=== PATIENT | female | born 1955 | race Caucasian/White ===

== ENCOUNTER → 2018-08-18 | Outpatient (CLI) | payer OTHER | LOC: CAT 09:57 | DX: K80.20 Calculus of gallbladder without cholecystitis without obstruction (principal); I25.10 Atherosclerotic heart disease of native coronary artery without angina pectoris; I70.0 Atherosclerosis of aorta ==

== ENCOUNTER → 2021-01-02 | Outpatient (CLI) | payer OTHER, BC ==
[~2021-01-02] MED LIST: ARAVA20 MG PO; ASA81BEC PO; FOLIC ACID1 MG PO; FUROSEMIDE 40 M40 M1 PO; HYDROCODON-ACE1 EAC7 PO; MAG6464 MG PO; METFORMIN HCL500 MG PO; METHOTREXATE 22.5 M1 PO; POTASSIUM PO
[2021-01-02 10:18] LABS: HEMATOCRIT 41.1 % (37.0-47.0); HEMOGLOBIN 13.7 gm/dL (12.0-15.0); MCHC 33.4 g/dL (28.0-37.0); MCV 92.6 fL (80.0-100.0); RBC 4.44 mil/uL (4.20-5.00); RDW 16.4 % (10.5-14.5); WBC 5.1 thou/uL (4.0-11.0)
[2021-01-02 10:33] LABS: APTT 24.5 Seconds (24.5-32.8); INR 0.99; PROTIME 10.8 Seconds (10.5-12.1)
[2021-01-02 10:34] LABS: ALBUMIN 3.1 g/dL (3.4-5.0); CALCIUM 8.9 mg/dL (8.5-10.1); CREATININE 0.7 mg/dL (0.6-1.0); POTASSIUM 3.3 mmol/L (3.5-5.1); TOTAL BILIRUBIN 0.7 mg/dL (0.2-1.0); TOTAL PROTEIN 6.7 g/dL (6.4-8.2)
[2021-01-02 10:43] LABS: URINE BLOOD NEGATIVE (Negative); URINE CLARITY CLEAR; URINE COLOR YELLOW; URINE GLUCOSE-RANDOM* NEGATIVE (Negative); URINE KETONES NEGATIVE (Negative); URINE LEUKOCYTES-REFLEX NEGATIVE (Negative); URINE NITRITE-REFLEX NEGATIVE (Negative); URINE PROTEIN (DIPSTICK) TRACE (Negative); URINE SPECIFIC GRAVITY >= 1.030 (1.005-1.035); URINE UROBILINOGEN 0.2 E.U./dl (0.2-1.0)
[2021-01-02 10:48] LABS: ICTOTEST (BILI CONFIRMATORY) Negative (Negative); URINE BILIRUBIN NEGATIVE (Negative)
== END ==
LOC: PAC 09:25 → LAB 16:51
PROVIDERS: ATTEND Specialist
DX: Z01.812 Encounter for preprocedural laboratory examination (principal); Z20.822 Contact with and (suspected) exposure to COVID-19

== ENCOUNTER 2021-01-04 06:17 | Observation (INO) | payer OTHER, BC ==
[~2021-01-04] VITALS: Ht 152.4 cm; Wt 61.2 kg
[2021-01-04 08:36] VITALS: BP 143/93
--- NOTE | 2021-01-04 16:39 | NUR ---
PT ADMITTED RELATED TO LUMBAR DISCECTOMY. CM REVIEWED CHART AND SPOKE WITH CARE TEAM. CM MET WITH PT AND SPOUSE AT BEDSIDE THIS DAY. PT APPEARED TO BE A&O X4. INDICATED SHE RESIDES IN HOUSE WITH SPOUSE WITH 3 STEPS TO ENTER THROUGH GARAGE AND NO STEPS SHE NEEDS TO USE INSIDE. ALL NEEDS ON 1 LEVEL. 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 PT INDICATED SHE HAD BEEN TO [place] TWICE IN THE PAST AND HAD [facility]. PT RECEPTIVE TO POST ACUTE CARE STAY IF RECOMMENDED UPON DC. CM FOLLOWING REGARDING DC PLANNING.
[2021-01-04 17:04] VITALS: BP 136/98
[2021-01-04 17:42] VITALS: BP 111/54
--- NOTE | 2021-01-04 18:16 | NUR ---
Pt arrived to floor from recovery room around 1600 in stable condition. Admission hx,assessment and care plan completed.Aquacel drsg to lower back c/d/i.Pt up to bsc with 1 assist. Voided and able to do pericare byself. at bs assisting with care.Dinnergiven and well tolerated.Ivf infusing as ordered.Will continue to monitor.
[2021-01-04 19:37] VITALS: BP 127/53
--- NOTE | 2021-01-05 04:13 | NUR ---
recieved pt at shift report. no c/o pain or discomfort. pt iv infusing LR w/o difficulties. dressing to mid back dry and intact . pt up to bsc x2 thru noc . Lr finished infusing @ 0230 am iv sailne locked. prn given x1 thru noc.
[2021-01-05 05:58] LABS: ABSOLUTE NEUTROPHILS 4.4 thou/uL (1.4-8.2); BASOPHILS 0.4 % (0.0-2.0); EOSINOPHILS 0.1 % (0.0-3.0); HEMATOCRIT 35.2 % (37.0-47.0); LYMPHOCYTES 16.8 % (24.0-44.0); MCH 31.4 pg (26.0-34.0); MCHC 33.1 g/dL (28.0-37.0); MCV 94.8 fL (80.0-100.0); PLATELET COUNT 174 thou/uL (150-400); POLYS 72.7 % (36.0-66.0); RBC 3.72 mil/uL (4.20-5.00); RDW 16.8 % (10.5-14.5)
[2021-01-05 06:05] LABS: HEMOGLOBIN 11.7 gm/dL (12.0-15.0)
[2021-01-05 06:14] LABS: CALCIUM 8.2 mg/dL (8.5-10.1); CREATININE 0.7 mg/dL (0.6-1.0); MAGNESIUM 1.6 mg/dL (1.8-2.4); POTASSIUM 4.1 mmol/L (3.5-5.1)
[2021-01-05 07:40] VITALS: BP 132/73
[2021-01-05 09:01] LABS: FOLIC ACID 6.2 ng/mL (8.6-58.9)
--- NOTE | 2021-01-05 14:54 | NUR ---
CM FOLLOWED UP WITH PT AT BEDSIDE THIS AM. PT HAD JUST SEEN PT AND INDICATED THAT SHE WAS SAFE WITH MOBILITY. PT DISCHARGED. OT ATTEMPTED TO VISIT AND PT INDICATED SHE FELT FINE AND DECLINED EVALUATION. PT HAS ALL RECOMMENDED DME UPON DC. PT INDICATED SHE HOPES TO BE ABLE TO DISCHARGE HOME THIS DAY AFTER HER SPOUSE GETS OFF WORK.
--- NOTE | 2021-01-05 15:05 | NUR ---
Assumed pt care at 7am.Pt up in chair resting and anxiously waiting for breakfast.Assessment completed.vss.Am meds given with breakfast and well tolerated.Dr Jacinto and Adrien here,order noted.Pt refused insulin at lunch but took metformin.Pt will dc home later this evening when closes from work.No verbal c/o at present.Pt up in chair resting.Will continue to monitor.
[2021-01-05] MEDS ORDERED: VITAMIN B-121000 MC2 SUBLING (15:25)
[2021-01-05] MEDS ORDERED: COLACE100 MG PO (15:25)
[2021-01-05] MEDS ORDERED: METHOCARBAMOL500 M2 PO (15:25)
[2021-01-05] MEDS ORDERED: MIRALAX17 GM PO (15:25)
[2021-01-05 15:30] VITALS: BP 132/73
[2021-01-05 15:35] VITALS: BP 132/73
[2021-01-05 17:11] VITALS: BP 132/73
[2021-01-06 00:06] LABS: GLYCOHEMOGLOBIN (HGB A1C) 11.8 % (4.8-5.6)
--- NOTE | 2021-01-06 14:54 | NUR ---
CONSULT [id number] WAS COMPLETED BY THIS BLANKET CUTTER HAND. I SAW THE PATIENT AND IN PRE-OP. I HAD KNOWN THE PATIENT'S BROTHER IN LAW AND FAMILY FOR OVER 15 YEARS. IT WAS A WARM AND WELL RECIVED VISIT.
== END 2021-01-05 17:54 | disposition home or self-care (01) ==
LOC: TBA 06:17 → OR 06:17 → 4W 15:51
PROVIDERS: Nurse Practitioner; ADMIT Specialist; ATTEND Specialist
DX: M51.16 Intervertebral disc disorders with radiculopathy, lumbar region (principal); M06.9 Rheumatoid arthritis, unspecified; E09.9 Drug or chemical induced diabetes mellitus without complications; T38.0X5A Adverse effect of glucocorticoids and synthetic analogues, initial encounter; R60.0 Localized edema; Z88.6 Allergy status to analgesic agent; Z79.84 Long term (current) use of oral hypoglycemic drugs; Z79.899 Other long term (current) drug therapy; Y92.89 Other specified places as the place of occurrence of the external cause
CPT/HCPCS: 50010; 50101; 50402; 55340; 56525; 56528; 56532; 57103; 58457; 58567; 62110; 62900; 65130; 70005